=== PATIENT | male | born 1990 | race Caucasian/White ===

== ENCOUNTER 2021-11-03 09:01 | Emergency (ER) | payer OTHER ==
[~2021-11-03] VITALS: Ht 170.2 cm; Wt 60.6 kg
[2021-11-03] MEDS ORDERED: ONDANSETRON ODT4 MG PO (11:52)
[2021-11-03] MEDS ORDERED: HYDROCODON-ACE1 EA10 PO (11:52)
== END 2021-11-03 12:37 | disposition home or self-care (01) ==
LOC: ED 09:01
DX: N20.1 Calculus of ureter (principal)
CPT/HCPCS: 36415; 74176; 80053; 81001; 85025; 96374; 96375; 96376; 99284-25; J1885; J2405